=== PATIENT | male | born 1995 | race Two or more races ===

== ENCOUNTER 2019-02-04 18:27 | Emergency (ER) | payer SELFPAY ==
[~2019-02-04] VITALS: Ht 167.6 cm; Wt 68.0 kg
[2019-02-04] MEDS ORDERED: LORazepam 1mg tab ORAL ONE (18:30)
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
--- NOTE | 2019-02-04 19:09 | NUR ---
ED Nurse Note: REPORT GIVEN TO BERNICE POTTER. PATIENT REMAINED IN BED.
[2019-02-04 19:10] VITALS: BP 127/77
--- NOTE | 2019-02-04 19:10 | NUR ---
ED Nurse Note: Received report from Karishma QUEEN. Addendum: 02/04/19 at 1936 by GE ED Nurse Note: Patient alert and oriented, verbally responsive. HR 135, MD aware. No SI/ HI at this time. No SOB.
--- NOTE | 2019-02-04 19:25 | NUR ---
ED Nurse Note: Urine collected and sent to lab.
[2019-02-04 20:00] VITALS: BP 138/88
[2019-02-04 20:02] VITALS: BP 138/88
--- NOTE | 2019-02-04 20:02 | NUR ---
ED Nurse Note: Pt cleared by ERMD for discharge. DC instructions/prescription was given and explained to pt and verbalized understanding of teachings. All medical devices such as ID band and IV line removed. Pt is AAO x4, ambulatory and left with all personal belongings.
== END 2019-02-04 20:02 | disposition home or self-care (01) ==
LOC: EDBD 18:27 → EMR 18:45
DX: F15.10 Other stimulant abuse, uncomplicated (principal); F12.10 Cannabis abuse, uncomplicated
CPT/HCPCS: 80307; 96360; 96361; 99284; J7030

== ENCOUNTER 2019-02-07 05:00 | Inpatient (IN) | payer OTHER ==
[~2019-02-07] VITALS: Ht 162.6 cm; Wt 64.9 kg
[2019-02-07 05:08] VITALS: BP 120/99
[2019-02-07] MEDS ORDERED: LORazepam Inj 2mg/ml 1ml IV ONE (05:15)
--- NOTE | 2019-02-07 05:15 | NUR ---
ED Nurse Note: Patient was BIBA RA 26 from home due to substance abuse. Patient presented in handcuffs, accompany by [employer]. Patient is resstless, HR 160, AAO x3, skin is warm to touch. Per [employer] he overuse Meth, unknown dose. Patient was placed in the gown, connected to the monitor. Blood collected, sent down.
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
[2019-02-07 05:40] LABS: HEMATOCRIT 49.3 % (42.0-52.0); HEMOGLOBIN 16.3 G/DL (14.2-18.0); MEAN CORPUSCULAR VOLUME 92 FL (80-99); PLATELET COUNT 227 K/UL (150-450); RED BLOOD COUNT 5.36 M/UL (4.70-6.10); RED CELL DISTRIBUTION WIDTH 11.1 % (11.6-14.8)
[2019-02-07 06:02] LABS: ANION GAP 33 mmol/L (5-15); BLOOD UREA NITROGEN 15 mg/dL (7-18); CALCIUM 9.6 MG/DL (8.5-10.1); CHLORIDE 98 MMOL/L (98-107); CKMB 3.8 NG/ML (0.0-3.6); CREATINE KINASE 754 U/L (26-308); CREATININE 2.3 MG/DL (0.55-1.30); POTASSIUM 4.1 MMOL/L (3.5-5.1); SODIUM 139 MMOL/L (136-145)
[2019-02-07 06:04] LABS: CARBON DIOXIDE 8 MMOL/L (21-32)
[2019-02-07] MEDS ORDERED: LR 1000ml 1,000 ML IV ONE ×2 (06:30)
--- NOTE | 2019-02-07 07:11 | NUR ---
HAND-OFF: Report given to BERNICE Haynes. Patient is calm and cooperative.
[2019-02-07 07:54] VITALS: BP 106/76
[2019-02-07 07:54] LABS: ANION GAP 11 mmol/L (5-15); BLOOD UREA NITROGEN 11 mg/dL (7-18); CALCIUM 7.9 MG/DL (8.5-10.1); CARBON DIOXIDE 24 MMOL/L (21-32); CHLORIDE 108 MMOL/L (98-107); CREATININE 1.6 MG/DL (0.55-1.30); POTASSIUM 3.5 MMOL/L (3.5-5.1); SODIUM 143 MMOL/L (136-145)
--- NOTE | 2019-02-07 08:04 | NUR ---
LARRY Nurse Note: Belongings list completed. $672 counted with [employer] police lieutenant from [place] [id number] and RN. Patient has no acute distress.
[2019-02-07 08:10] LABS: ALANINE AMINOTRANSFERASE 23 U/L (12-78); ALBUMIN 3.7 G/DL (3.4-5.0); ALBUMIN/GLOBULIN RATIO 1.4 (1.0-2.7); ALKALINE PHOSPHATASE 49 U/L (46-116); ASPARTATE AMINO TRANSFERASE 30 U/L (15-37); BILIRUBIN,TOTAL 0.3 MG/DL (0.2-1.0)
--- NOTE | 2019-02-07 08:10 | NUR ---
ED Nurse Note: Pt wallet with 2 credit cards and $672 will be sent with police officers [place] [address].
[2019-02-07 09:24] VITALS: BP 125/59
[2019-02-07] MEDS ORDERED: NKM (11:00)
--- NOTE | 2019-02-07 11:05 | NUR ---
ED Nurse Note: report given to Melodie QUEEN.
--- NOTE | 2019-02-07 11:05 | NUR ---
ED Nurse Note: patient transferred to 217 with all of his belonings on ACLS protocol, endorsed to Melodie NADINO, 2 police officers by the bedside, able to transfer pt to hospital bed without complication. endorsed all plan of care to Melodie ANDINO.
[2019-02-07 12:00] VITALS: BP 127/83
[2019-02-07 16:00] VITALS: BP 121/76
--- NOTE | 2019-02-07 19:10 | Cardiology Report ---
APPROVED REPORT EKG Measurement Heart [id number] Sinus tachycardia Rightward axis Nonspecific ST and T wave abnormality Abnormal ECG
--- NOTE | 2019-02-07 19:21 | NUR ---
NURSE NOTES: Received pt from BERNICE Fonseca. Pt is awake and resting in bed in no distress. Iv site intact. Bed locked in lowest position, bed alarm on, call light within reach. Will continue with plan of care.
[2019-02-07 20:00] VITALS: BP 105/65
[2019-02-08] VITALS: BP 107/72
[2019-02-08 04:00] VITALS: BP 104/70
--- NOTE | 2019-02-08 07:11 | NUR ---
HAND-OFF: Report given to BERNICE Berumen. Endorsed plan of care.
--- NOTE | 2019-02-08 07:25 | NUR ---
NURSE NOTES: Received report from Clayton/RN, Patient is asleep, Lying semi-flanagan's, resting comfortably. On room air, No acute distress/SOB noted. Sinus rhythm on the monitor. IV on Right AC patent, No infiltration or bleeding noted. Two [employer] at bedside. Bed in low position and locked, Bed alarm engaged. Call light within reach, Encouraged to use call light when needed. Will continue to monitor.
[2019-02-08 07:34] LABS: ANION GAP 4 mmol/L (5-15); BLOOD UREA NITROGEN 8 mg/dL (7-18); CALCIUM 7.8 MG/DL (8.5-10.1); CARBON DIOXIDE 31 MMOL/L (21-32); CHLORIDE 109 MMOL/L (98-107); CREATININE 0.9 MG/DL (0.55-1.30); POTASSIUM 3.1 MMOL/L (3.5-5.1); SODIUM 144 MMOL/L (136-145)
--- NOTE | 2019-02-08 07:59 | Nephrology Progress Note ---
Assessment/Plan Assessment/Plan: A/P 1) LISA- due to volume depletion - resolved - DC IVFs 2) Hypokalemia- will replace po today 3) Dehydration- resolved. DC IVFs 4) Amphetamine Abuse- per PCP Subjective Date patient seen: Feb 08, 2019 Time patient seen: 07:57 ROS Limited/Unobtainable: No Allergies: Coded Allergies: No Known Allergies (Unverified , 02/04/19) Subjective Patient resting comfortably. No overt distress Objective Last 24 Hour Vital Signs Date Time Temp Pulse Resp B/P (MAP) Pulse Ox O2 Delivery O2 Flow Rate FiO2 02/08/19 04:00 71 02/08/19 04:00 98.2 71 17 104/70 (81) 98 02/08/19 00:00 98.2 87 18 107/72 (84) 97 02/08/19 00:00 87 02/07/19 21:00 Room Air 02/07/19 20:00 98.5 98 17 105/65 (78) 98 02/07/19 20:00 98 02/07/19 16:00 86 02/07/19 16:00 98.4 104 16 121/76 (91) 97 02/07/19 14:03 Room Air 02/07/19 12:00 92 02/07/19 12:00 98.7 92 16 127/83 (98) 98 02/07/19 11:05 98.7 60 16 138/80 98 Room Air 02/07/19 09:24 98.6 113 18 125/59 100 Room Air Intake and Output 02/07/19 02/08/19 19:00 07:00 Intake Total 240 ml Output Total 3700 ml 1300 ml Balance -3460 ml -1300 ml Intake Oral 240 ml Output Urine Total 3700 ml 1300 ml # Voids 1 Laboratory Tests 02/07/19 09:10: Lactic Acid Level 1.60 02/08/19 06:15: Sodium Level 144, Potassium Level 3.1L, Chloride Level 109H, Carbon Dioxide Level 31, Anion Gap 4L, Blood Urea Nitrogen 8, Creatinine 0.9, Estimat Glomerular Filtration Rate > 60, Glucose Level 91, Calcium Level 7.8L Height (Feet): 5 Height (Inches): 4.00 Weight (Pounds): 143 General Appearance: no apparent distress, alert EENT: normal ENT inspection Neck: normal alignment, supple Cardiovascular: normal rate, regular rhythm Respiratory/Chest: lungs clear, normal breath sounds Abdomen: non tender, soft Edema: no edema noted Arm (L), no edema noted Arm (R), no edema noted Leg (L), no edema noted Leg (R), no edema noted Pedal (L), no edema noted Pedal (R), no edema noted Generalized Robin Champagne MD Feb 08, 2019 07:59
[2019-02-08 08:00] VITALS: BP 120/72
--- NOTE | 2019-02-08 10:58 | Pulmonology Progress Note ---
Assessment/Plan Assessment/Plan A/P 1) LISA- due to volume depletion - resolved - DC IVFs 2) Hypokalemia- will replace po today 3) Dehydration- resolved. DC IVFs 4) Amphetamine Abuse- WIll dc to [employer] custody if CBC OK Stat CBC ordered Subjective Interval Events: None new reported; states heis well Constitutional: Reports: no symptoms HEENT: Repors: no symptoms Respiratory: Reports: no symptoms Cardiovascular: Reports: no symptoms Gastrointestinal/Abdominal: Reports: no symptoms Allergies: Coded Allergies: No Known Allergies (Unverified , 02/04/19) Objective Last 24 Hour Vital Signs Date Time Temp Pulse Resp B/P (MAP) Pulse Ox O2 Delivery O2 Flow Rate FiO2 02/08/19 09:00 Room Air 02/08/19 08:00 71 02/08/19 08:00 97.2 67 18 120/72 (88) 98 02/08/19 04:00 71 02/08/19 04:00 98.2 71 17 104/70 (81) 98 02/08/19 00:00 98.2 87 18 107/72 (84) 97 02/08/19 00:00 87 02/07/19 21:00 Room Air 02/07/19 20:00 98.5 98 17 105/65 (78) 98 02/07/19 20:00 98 02/07/19 16:00 86 02/07/19 16:00 98.4 104 16 121/76 (91) 97 02/07/19 14:03 Room Air 02/07/19 12:00 92 02/07/19 12:00 98.7 92 16 127/83 (98) 98 02/07/19 11:05 98.7 60 16 138/80 98 Room Air Intake and Output 02/07/19 02/08/19 18:59 06:59 Intake Total 240 ml Output Total 3700 ml 1300 ml Balance -3460 ml -1300 ml Intake Oral 240 ml Output Urine Total 3700 ml 1300 ml # Voids 1 General Appearance: no acute distress HEENT: normocephalic Respiratory/Chest: chest wall non-tender, lungs clear Cardiovascular: normal peripheral pulses, normal rate Abdomen: normal bowel sounds Laboratory Tests 02/08/19 06:15: Sodium Level 144, Potassium Level 3.1L, Chloride Level 109H, Carbon Dioxide Level 31, Anion Gap 4L, Blood Urea Nitrogen 8, Creatinine 0.9, Estimat Glomerular Filtration Rate > 60, Glucose Level 91, Calcium Level 7.8L Flakito Weems MD Feb 08, 2019 10:58
[2019-02-08 11:22] LABS: BASOPHILS % (AUTO) 1.3 % (0.0-2.0); EOSINOPHILS % (AUTO) 1.3 % (0.0-3.0); HEMATOCRIT 38.2 % (42.0-52.0); HEMOGLOBIN 13.1 G/DL (14.2-18.0); LYMPHOCYTES % (AUTO) 51.1 % (20.0-45.0); MEAN CORPUSCULAR VOLUME 89 FL (80-99); MONOCYTES % (AUTO) 8.3 % (1.0-10.0); NEUTROPHILS % (AUTO) 38.1 % (45.0-75.0); PLATELET COUNT 227 K/UL (150-450); RED CELL DISTRIBUTION WIDTH 10.9 % (11.6-14.8); WHITE BLOOD COUNT 7.2 K/UL (4.8-10.8)
[2019-02-08 12:00] VITALS: BP 120/76
[2019-02-08] MEDS ORDERED: LORazepam 1mg tab ORAL PRN (13:00)
--- NOTE | 2019-02-08 13:15 | NUR ---
NURSE NOTES: Discharge instruction given, Patient unable to verbalized understanding. hemodialysis technician and IV removed. No acute distress or bleeding noted. Belonging check done, no belonging missing. Patient is in stable condition. Vitals stable. Patient in custody, left with [employer].
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
== END 2019-02-08 13:15 | DRG 683 ==
LOC: EDBD 05:00 → EDUNIT# 05:15 → EMR 05:15 → 2E 08:27 → EDBEDREQ 08:28
DX: N17.9 Acute kidney failure, unspecified (principal); E87.2 Acidosis; F15.10 Other stimulant abuse, uncomplicated; E86.0 Dehydration; E86.9 Volume depletion, unspecified; E87.6 Hypokalemia
CPT/HCPCS: 36415; 36600; 71045; 80048; 80053; 80307; 82009; 82550; 82553; 82803; 83605; 84439; 84443; 84481; 84484; 84600; 85007; 85025; 93005; 96361; 96374; 99291; G0480; J8499